=== PATIENT | male | born 2000 | race Caucasian/White ===

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

== ENCOUNTER → 2025-02-25 | Outpatient (REF) | payer BC | LOC: M LAB REF 16:52 | PROVIDERS: ATTEND Physician Assistant | DX: B34.9 Viral infection, unspecified (principal) ==